=== PATIENT | male | born 1970 | race Caucasian/White ===

== ENCOUNTER → 2017-03-13 | Outpatient (REF) | payer BC, OTHER ==
[~2017-03-13] MED LIST: ASPI325T PO; CARV6.25 PO; LISI5TAB PO; NITR0.4S SL; PRAV20TA2 PO; VICO5TAB PO
== END ==
LOC: M LAB REF 16:27
DX: L97.911 Non-pressure chronic ulcer of unspecified part of right lower leg limited to breakdown of skin (principal)

== ENCOUNTER → 2017-04-01 | Outpatient (REF) | payer OTHER | LOC: M LAB REF 16:13 | PROVIDERS: ATTEND Surgery | DX: I87.311 Chronic venous hypertension (idiopathic) with ulcer of right lower extremity (principal) ==

== ENCOUNTER → 2017-04-02 | Outpatient (CLI) | payer OTHER ==
--- NOTE | 2017-04-02 13:45 | REP ---
Duplex extremity venous ultrasound right lower extremity: DVT and reflux evaluation. History: Venous insufficiency right lower extremity ulcer. 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 Otherwise, the deep veins in the right lower extremity are anechoic and fully compressible on two-dimensional scanning from the groin to the popliteal fossa. Color flow and spectral Doppler interrogation are otherwise unremarkable on the right. There is no other evidence of DVT. Reflux examination. There is extensive reflux seen in the right lower extremity veins in both superficial and deep system. Reflux greater than 0.5 seconds in duration is seen in the common femoral vein. An anterior accessory greater saphenous vein is present without evidence of reflux. The greater saphenous vein shows 3.7 second duration reflux at the saphenofemoral junction where it measures 10.1 mm in AP dimension. The greater saphenous vein at the midthigh measures 7.7 mm in AP dimension and demonstrates 6.9 second duration reflux. The greater saphenous vein at the knee measures 3.4 mm without visible reflux. Reflux is observed greater than 0.5 seconds at the proximal mid and distal segment of the femoral vein and at the popliteal vein on the right. No reflux is observed in the lesser saphenous vein which measured 1.1 mm. There is a large collateral off the mid greater saphenous vein which shows reflux extending down to the knee. There is a instructional media services technician seen off the mid greater saphenous vein with reflux. The greater saphenous vein is felt to be amendable to EVLT. Impression: 1. Study is positive for limited occlusive deep venous thrombosis in one of the duplicated segments of the femoral vein. 2. Multilevel reflux in the deep and superficial system seen as described in detail above. The greater saphenous vein is felt to be amendable to EVLT. Signed by Chris Arias MD 04/02/2017 02:07 P
== END ==
LOC: M RAD 10:51
PROVIDERS: ATTEND Surgery
DX: I87.311 Chronic venous hypertension (idiopathic) with ulcer of right lower extremity (principal); L97.919 Non-pressure chronic ulcer of unspecified part of right lower leg with unspecified severity

== ENCOUNTER → 2017-07-04 | Outpatient (CLI) | payer MEDICAID ==
--- NOTE | 2017-07-04 17:25 | REP ---
Clinical: Trauma. Technique: Frontal view of the chest with multiple views of the right hemithorax. Findings: Frontal view of the chest demonstrates no acute cardiopulmonary process. Multiple views of the right hemithorax demonstrates no obvious acute rib fracture or pathology. Impression: Normal right rib series Signed by Torres Ennis MD 07/04/2017 05:16 P
== END ==
LOC: M LRY 16:53
PROVIDERS: ATTEND Physician Assistant
DX: S29.011A Strain of muscle and tendon of front wall of thorax, initial encounter (principal); X58.XXXA Exposure to other specified factors, initial encounter; Y92.89 Other specified places as the place of occurrence of the external cause; Y93.89 Activity, other specified; Y99.8 Other external cause status

== ENCOUNTER → 2017-10-13 | Outpatient (CLI) | payer OTHER ==
--- NOTE | 2017-10-14 03:58 | REP ---
Clinical: Idiopathic chronic venous hypertension . Technique: Navarrete scale and color Doppler evaluation using linear high frequency transducer including reflux evaluation. Comparison: 04/02/2017. Findings: Ultrasound examination of the left lower extremity deep venous structures from the common femoral vein to the popliteal vein demonstrates a small focus of nonocclusive thrombus in the mid femoral vein which may be chronic. Reflux evaluation demonstrates chronic reflux through the deep system including common femoral vein, superficial femoral vein and popliteal vein. Reflux identified through the proximal greater saphenous vein measuring 9.1 mm maximal diameter with a duration of 2.9 seconds as well as reflux through the mid the greater saphenous vein at the level of the thigh measures 8 mm diameter with a duration of 1.1 seconds. No evidence for reflux through the distal greater saphenous vein, anterior accessory greater saphenous vein, or lesser saphenous vein. Collateral vessels are identified extending from the mid greater saphenous vein towards an area of ulceration along with small perforating vessels from the mid greater saphenous vein extending distally. Impression: 1. Suspect small chronic nonocclusive thrombus in the mid superficial femoral vein similar to prior examination. 2. Continued evidence for reflux through the deep system as well as proximal to mid greater saphenous vein. Signed by Torres Ennis MD 10/14/2017 12:49 A
== END ==
LOC: M RAD 10:23
PROVIDERS: ATTEND Surgery
DX: I87.311 Chronic venous hypertension (idiopathic) with ulcer of right lower extremity (principal)

== ENCOUNTER → 2017-10-15 | Outpatient (REF) ==
--- NOTE | 2017-10-15 18:32 | REP ---
Clinical: Pain and disability. Technique: AP, lateral, coned-down views of the lumbosacral spine. Comparison: 07/27/2009. Findings: Moderate multilevel degenerative changes include endplate sclerosis, disc space narrowing, and mild hypertrophic facet changes. Old compression fracture involving the anterior-superior margin of L3 is identified. Previous mild compression fractures involving L2 and L4 are relatively well-healed and without significant loss of vertebral body height or contour abnormality. Impression: Moderate multilevel degenerative changes. Subtle changes along the anterior superior margin of L3 consistent with old compression fracture. Previous fractures at L2 and L4 appear relatively well-healed and without loss of height or contour abnormality. Signed by Torres Ennis MD 10/15/2017 03:23 P
== END ==
LOC: M SMT 15:33
PROVIDERS: ATTEND Internal Medicine
DX: Z02.71 Encounter for disability determination (principal)

== ENCOUNTER → 2018-04-07 | Outpatient (CLI) | payer OTHER | LOC: M EKG 11:43 | DX: I25.10 Atherosclerotic heart disease of native coronary artery without angina pectoris (principal) | CPT/HCPCS: 93005 ==

== ENCOUNTER 2018-04-10 15:25 | Day surgery (SDC) | payer OTHER ==
[2018-04-10] MEDS: LR 1,000 ML IV ×2 (16:04→19:30)
[2018-04-10] MEDS ORDERED: MIDAZOLAM INJ 2 MG/2 ML VIAL (J2250) As Ordered (17:17)
[2018-04-10] MEDS ORDERED: LIDOCAINE 2% INJ 100 MG/5 ML SDV (FOR ANES.) As Ordered (17:17)
[2018-04-10] MEDS ORDERED: PROPOFOL 500 MG/50 ML VIAL As Ordered (17:17)
[2018-04-10] MEDS ORDERED: fentaNYL 100 MCG/2 ML INJECTION (J3010) As Ordered ×2 (17:18→18:58)
[2018-04-10] MEDS: LIDOCAINE W/EPINEPHRINE 1% 20ML VIAL As Ordered (18:56)
[2018-04-10] MEDS ORDERED: ONDANSETRON 4MG/2ML VIAL (J2405) As Ordered (19:20)
[2018-04-10] MEDS ORDERED: PERCOCET 5MG/325MG TAB As Ordered (19:23)
[2018-04-10] MEDS ORDERED: MORPHINE 10 MG/ML 1ML VIAL (J2270) As Ordered (19:23)
[2018-04-10] MEDS: ONDANSETRON 4MG/2ML VIAL (J2405) IV (19:30)
[2018-04-10] MEDS: PERCOCET 5MG/325MG TAB PO ×2 (19:31→20:00)
[2018-04-10] MEDS: MORPHINE 10 MG/ML 1ML VIAL (J2270) IV ×5 (19:31→20:02)
== END 2018-04-10 20:35 | disposition home or self-care (01) ==
LOC: M SDC 15:25
DX: I83.219 Varicose veins of right lower extremity with both ulcer of unspecified site and inflammation (principal); L97.919 Non-pressure chronic ulcer of unspecified part of right lower leg with unspecified severity; I25.10 Atherosclerotic heart disease of native coronary artery without angina pectoris; I25.2 Old myocardial infarction; Z98.61 Coronary angioplasty status; Z79.82 Long term (current) use of aspirin; Z79.02 Long term (current) use of antithrombotics/antiplatelets
CPT/HCPCS: 36475

== ENCOUNTER → 2018-04-24 | Outpatient (CLI) | payer OTHER | LOC: M RAD 12:16 | DX: I82.811 Embolism and thrombosis of superficial veins of right lower extremity (principal) | CPT/HCPCS: 93971 ==

== ENCOUNTER 2018-09-24 13:59 | Emergency (ER) | payer OTHER ==
[2018-09-24] MEDS: APIXABAN 5 MG TAB (ELIQUIS) PO (16:14)
== END 2018-09-24 16:19 | disposition home or self-care (01) ==
LOC: M ED 13:59
DX: I82.4Z2 Acute embolism and thrombosis of unspecified deep veins of left distal lower extremity (principal); Z79.899 Other long term (current) drug therapy; Z79.82 Long term (current) use of aspirin; F17.210 Nicotine dependence, cigarettes, uncomplicated
CPT/HCPCS: 93970

== ENCOUNTER → 2019-07-12 | Outpatient (REF) | payer MEDICARE, OTHER, SELFPAY ==
[~2019-07-12] MED LIST changes: +ASPI81TA26 PO; +ELIQ5TAB PO; +GABA-845 PO; +HYDR-3715 PO
[2019-07-12 17:25] LABS: HEMATOCRIT 49.7 % (42.0-52.0); HEMOGLOBIN 16.5 g/dl (13.5-17.5); MEAN CORPUSCULAR HEMOGLOBIN 29.4 pg (27.0-33.0); MEAN CORPUSCULAR HGB CONC 33.2 g/dl (32.0-36.5); MEAN CORPUSCULAR VOLUME 88.6 fl (80.0-96.0); PLATELET COUNT, AUTOMATED 257 10^3/uL (150-450); RED BLOOD COUNT 5.61 10^6/uL (4.30-6.10)
[2019-07-12 17:41] LABS: INR 1.09; PROTHROMBIN TIME 13.8 SECONDS (11.8-14.0)
[2019-07-12 17:53] LABS: ALBUMIN 3.7 GM/DL (3.2-5.2); ALT/SGPT 43 U/L (12-78); BILIRUBIN,TOTAL 0.5 MG/DL (0.2-1.0); BLOOD UREA NITROGEN 24 MG/DL (7-18); CALCIUM LEVEL 9.1 MG/DL (8.5-10.1); CARBON DIOXIDE LEVEL 26 MEQ/L (21-32); CHLORIDE LEVEL 108 MEQ/L (98-107); CREATININE FOR GFR 1.09 MG/DL (0.70-1.30); GLOMERULAR FILTRATION RATE > 60.0 (>60); GLUCOSE, FASTING 95 MG/DL (70-100); POTASSIUM SERUM 4.2 MEQ/L (3.5-5.1); SODIUM LEVEL 141 MEQ/L (136-145); TOTAL PROTEIN 6.6 GM/DL (6.4-8.2)
[2019-07-17 00:06] LABS: PROTEIN C ANTIGEN 76 % (60-150); PROTEIN S ANTIGEN FREE 56 % (57-157); PROTEIN S ANTIGEN TOTAL 74 % (60-150)
== END ==
LOC: M SFHCPLAZ 16:40
PROVIDERS: ATTEND Surgery
DX: T14.8XXA Other injury of unspecified body region, initial encounter (principal); Y92.89 Other specified places as the place of occurrence of the external cause

== ENCOUNTER → 2019-07-27 | Outpatient (REF) | payer MEDICARE ==
[~2019-07-27] MED LIST changes: +IBUP80TA PO
[2019-07-27 20:40] LABS: BASO # 0.1 10^3/uL (0.0-0.2); EOS # 0.5 10^3/uL (0.0-0.5); HEMATOCRIT 48.5 % (42.0-52.0); HEMOGLOBIN 16.3 g/dl (13.5-17.5); LYMPH # 1.1 10^3/uL (1.5-5.0); LYMPH % 21.1 % (24.0-44.0); MEAN CORPUSCULAR HEMOGLOBIN 29.4 pg (27.0-33.0); MEAN CORPUSCULAR HGB CONC 33.6 g/dl (32.0-36.5); MEAN CORPUSCULAR VOLUME 87.5 fl (80.0-96.0); MONO # 0.6 10^3/uL (0.0-0.8); MONO % 11.2 % (0.0-5.0); NEUTROPHILS # 2.9 10^3/uL (1.5-8.5); NEUTROPHILS % 57.3 % (36.0-66.0); PLATELET COUNT, AUTOMATED 236 10^3/uL (150-450); RED BLOOD COUNT 5.54 10^6/uL (4.30-6.10)
[2019-07-27 20:52] LABS: INR 1.09; PROTHROMBIN TIME 13.8 SECONDS (11.8-14.0)
[2019-07-27 20:53] LABS: ALBUMIN 3.5 GM/DL (3.2-5.2); ALT/SGPT 32 U/L (12-78); AMPHETAMINES URINE REFLEX NEGATIVE (NEGATIVE); BARBITURATES URINE REFLEX NEGATIVE (NEGATIVE); BENZODIAZEPINES URINE REFLEX NEGATIVE (NEGATIVE); BILIRUBIN,TOTAL 0.3 MG/DL (0.2-1.0); BLOOD UREA NITROGEN 18 MG/DL (7-18); CALCIUM LEVEL 9.1 MG/DL (8.5-10.1); CANNABINOIDS URINE REFLEX NEGATIVE (NEGATIVE); CARBON DIOXIDE LEVEL 28 MEQ/L (21-32); CHLORIDE LEVEL 108 MEQ/L (98-107); CHOLESTEROL LEVEL 220 MG/DL (<200); CHOLESTEROL RISK RATIO 5.945 (<5); COCAINE METABOLITE URINE REFLE NEGATIVE (NEGATIVE); CREATININE FOR GFR 0.95 MG/DL (0.70-1.30); GLOMERULAR FILTRATION RATE > 60.0 (>60); GLUCOSE, FASTING 110 MG/DL (70-100); HDL CHOLESTEROL 37 MG/DL (>40); LDL CHOLESTEROL 132 MG/DL (<100); METHADONE URINE REFLEX NEGATIVE (NEGATIVE); NON-HDL-C 183 MG/DL; OPIATES URINE REFLEX NEGATIVE (NEGATIVE); PHENCYCLIDINE URINE REFLEX NEGATIVE (NEGATIVE); POTASSIUM SERUM 4.6 MEQ/L (3.5-5.1); SODIUM LEVEL 142 MEQ/L (136-145); TOTAL PROTEIN 7.5 GM/DL (6.4-8.2); TRIGLYCERIDES LEVEL 256 MG/DL (<150)
[2019-07-27 20:58] LABS: HEMOGLOBIN A1c 5.6 %
== END ==
LOC: M SFHCLERA 15:05
PROVIDERS: ATTEND Family Medicine
DX: F11.90 Opioid use, unspecified, uncomplicated (principal); E66.09 Other obesity due to excess calories; I82.412 Acute embolism and thrombosis of left femoral vein; Z79.01 Long term (current) use of anticoagulants
CPT/HCPCS: 80053; 80061; 80307; 83036; 84443; 85025; 85610; G0463

== ENCOUNTER 2019-09-24 14:22 | Emergency (ER) | payer MEDICARE ==
[~2019-09-24] VITALS: Ht 177.8 cm; Wt 122.0 kg
[~2019-09-24 14:22] MED LIST changes: -IBUP80TA PO
[2019-09-24] MEDS ORDERED: NS 1,000 ML IV ONE (15:15)
[2019-09-24] MEDS ORDERED: MORPHINE 4 MG/ML 1ML VIAL/SYRINGE (J2270) IV ONE (15:15)
[2019-09-24 16:03] LABS: BASO # 0.1 10^3/uL (0.0-0.2); EOS # 0.3 10^3/uL (0.0-0.5); HEMATOCRIT 49.3 % (42.0-52.0); HEMOGLOBIN 15.9 g/dl (13.5-17.5); LYMPH # 1.1 10^3/uL (1.5-5.0); LYMPH % 17.6 % (24.0-44.0); MEAN CORPUSCULAR HEMOGLOBIN 27.8 pg (27.0-33.0); MEAN CORPUSCULAR HGB CONC 32.3 g/dl (32.0-36.5); MEAN CORPUSCULAR VOLUME 86.3 fl (80.0-96.0); MONO # 0.7 10^3/uL (0.0-0.8); MONO % 11.5 % (0.0-5.0); NEUTROPHILS % 64.4 % (36.0-66.0); PLATELET COUNT, AUTOMATED 270 10^3/uL (150-450); RED BLOOD COUNT 5.71 10^6/uL (4.30-6.10); WHITE BLOOD COUNT 6.2 10^3/uL (4.0-10.0)
[2019-09-24 16:15] LABS: INR 1.15; PROTHROMBIN TIME 14.4 SECONDS (11.8-14.0)
[2019-09-24 16:16] LABS: PARTIAL THROMBOPLASTIN TIME 27.2 SECONDS (25.0-38.4)
[2019-09-24 16:20] LABS: ALBUMIN 3.7 GM/DL (3.2-5.2); ALT/SGPT 44 U/L (12-78); BILIRUBIN,DIRECT < 0.1 MG/DL (0.0-0.2); BILIRUBIN,TOTAL 0.4 MG/DL (0.2-1.0); C REACTIVE PROTEIN QUANTITATIV < 0.30 MG/DL (0.00-0.30); TOTAL PROTEIN 7.4 GM/DL (6.4-8.2)
[2019-09-24 16:22] LABS: ERYTHROCYTE SEDIMENTATION RATE 5 mm/hr (0-15)
--- NOTE | 2019-09-24 16:31 | REP ---
Clinical: Increasing pain. Comparison: 09/24/2018 at 02:53 p.m. . Technique: Navarrete scale and color Doppler evaluation using linear high frequency transducer. Findings: Ultrasound examination of the left lower extremity demonstrates chronic nonocclusive thrombus from the common femoral vein to the popliteal vein. Impression: Chronic nonocclusive thrombus. Electronically Signed by Torres Ennis MD 09/24/2019 04:22 P
[2019-09-24] MEDS ORDERED: IBUP80TA PO (16:47)
[2019-09-24 17:09] VITALS: BP 145/77
== END 2019-09-24 17:12 | disposition home or self-care (01) ==
LOC: M ED 14:22
DX: L97.229 Non-pressure chronic ulcer of left calf with unspecified severity (principal); I82.401 Acute embolism and thrombosis of unspecified deep veins of right lower extremity; I21.9 Acute myocardial infarction, unspecified; F17.210 Nicotine dependence, cigarettes, uncomplicated; Z79.01 Long term (current) use of anticoagulants
CPT/HCPCS: 36415; 80047; 80076; 81001; 83605; 85025; 85610; 85652; 85730; 86140; 87040; 93971; 96374; 99284; J2270

== ENCOUNTER → 2019-11-19 | Outpatient (CLI) | payer MEDICARE ==
[~2019-11-19] MED LIST changes: +IBUP80TA PO
--- NOTE | 2019-11-19 20:35 | REP ---
LEFT LOWER EXTREMITY ARTERIAL DOPPLER ULTRASOUND: 11/19/2019. Clinical history: Chronic ulceration left lower extremity fat layer explosive exposed, non pressure ulcer. Findings: Standard duplex Doppler interrogation techniques for lower extremity arterial Doppler were utilized. The left HEIDI: Brachial : 150 Dorsalis pedis: 174 MAINTENANCE REPAIRER: 150 The left HEIDI: 1.09. Left lower extremity: Peak systolic velocity: Phasicity. NITRILES LAB TECHNICIAN: 159.2 cm/S triphasic Profunda: 72.9 cm/S triphasic SFA proximal: 127.3 cm/S triphasic SFA mid: 117.8 cm/S triphasic SFA distal: 77.1 cm/S triphasic Pop: 78.4 cm/S triphasic KARAN prox: 109 cm/S triphasic Tibioperoneal trunk: 56.9 cm/S triphasic MAINTENANCE REPAIRER proximal: 83.1 cm/S triphasic MAINTENANCE REPAIRER distal: 105 cm/S monophasic KARAN distal: 77 cm/S monophasic There are scattered mild plaques seen throughout the left lower extremity. Monophasic waveforms are only seen at the left ankle, but no specific stenosis. It may be that the distal MAINTENANCE REPAIRER and MAINTENANCE REPAIRER are monophasic with hyperemia from the nonhealing wounds waveform show high diastolic flow throughout. As an incidental finding. There is a nonocclusive clot in the left common femoral vein through the tibioperoneal trunk. The patient is on anticoagulation and has history of chronic DVT. Electronically Signed by Tyrone Lora MD 11/19/2019 08:26 P
== END ==
LOC: M RAD 16:55
PROVIDERS: ATTEND Physician Assistant
DX: I87.312 Chronic venous hypertension (idiopathic) with ulcer of left lower extremity (principal); L97.822 Non-pressure chronic ulcer of other part of left lower leg with fat layer exposed; I82.522 Chronic embolism and thrombosis of left iliac vein

== ENCOUNTER → 2019-12-07 | Outpatient (POV) | payer MEDICARE ==
[~2019-12-07] VITALS: Ht 177.8 cm; Wt 118.2 kg
[2019-12-07 14:20] VITALS: BP 140/83
--- NOTE | 2019-12-09 13:28 | IRCOV ---
[facility] IR Consult Office Visit IR Consult Office Visit DATE: Dec 07, 2019 REASON FOR CONSULTATION/CHIEF COMPLAINT: Nonhealing left lower extremity wounds. HISTORY OF PRESENT ILLNESS: 49-year-old male with prior history of right lower extremity varicose veins and ulcers which were treated with vein ablation 2 years ago and symptoms resolved. Now he presents with superficial, non healing, left lower extremity ulcers. Ulcers are shallow and located on the outside of the ankle and the medial calf. These have been present for several months. Prior history of right leg DVT years ago and left leg DVT diagnosed 1 year ago. He is on Eliquis. No IVC filter in place. Follow-up ultrasound of his left lower extremity have demonstrated incomplete resolution of left lower extremity deep vein thrombosis. He complains of left leg swelling and pain. No intermittent claudication. No rest pain. No prior to amputations, gangrene or cold foot. No chest pain, shortness of breath, orthopnea or paroxysmal nocturnal dyspnea. ALLERGIES: Please see below. HOME MEDICATIONS: Please see below. PAST MEDICAL HISTORY: [place] 2010 DVT 2 Right lower extremity venous ablation 2017 PAST SURGICAL HISTORY: Heart catheterization 2012 FAMILY HISTORY: Noncontributory. SOCIAL HISTORY: Quit smoking 3 weeks ago. Feels symptoms are improved since then. No alcohol or drugs. REVIEW OF SYSTEMS: Otherwise negative PHYSICAL EXAMINATION: VITAL SIGNS: Please see below. GENERAL APPEARANCE: Appears well. Comfortable at rest. HEENT: No scleral icterus. RESPIRATORY: Normal breathing at rest. CARDIOVASCULAR: Normal rate. ABDOMEN: Soft nontender. EXTREMITIES: Right lower extremity: Normal color. Warm to touch. Femoral pulse 2+ popliteal pulse 2+ DP/PT 2+ patchy sensory loss from ankle to mid calf; medial aspect. Motor 5 out of 5 Left lower extremity; spider veins. Ulcer medial calf and lateral ankle. Warm. Femoral pulse 2+ popliteal 2+ DP/PT 2+ motor 5 out of 5 sensation intact. NEUROLOGICAL: Alert and oriented. PSYCHIATRIC: Appropriate to circumstance. LABORATORY DATA: 09/24/2019 hemoglobin 15.9 hematocrit 49.3 WBC 6.2 platelets 270 sodium 142 potassium 4.6 BUN 18 creatinine 0.95 LDL 132 INR 1.15 Imaging: I personally reviewed the arterial ultrasound of the left lower extremity from October 2019. Predominantly triphasic waveforms in common femoral artery, superficial femoral artery and below-knee runoff. Scattered foci of monophasic waveform in the distal CHILD CARE but majority of AT and PT demonstrated triphasic flow. I personally reviewed the ultrasound left lower extremity of the veins from August 2019 and compared it to August 2018. There is persistent thrombus in the majority of the femoral vein and popliteal vein. The common femoral vein now appears compressible. ASSESSMENT/PLAN: 49-year-old male with venous stasis ulcers in the left lower extremity and chronic venous hypertension with incomplete resolution of left lower extremities deep vein thrombosis. Given patient's symptoms and signs, I wonder about the central drainage of the venous structures of the left lower extremity. I think a venogram to look for chronic total occlusion and attempt at recanalization may benefit the patient. Given his physical exam, present pulses on exam and review of ultrasound images, I'll hold off on angiogram at this time. We have scheduled the patient for venography and intervention if appropriate. I spent 30 minutes in consultation with the patient. Thank you for this referral. CC Jazmine Bingham Allergies Coded Allergies: No Known Drug Allergies (Verified Allergy, Unknown, 09/24/19) Home Medications Scheduled Apixaban (Eliquis), 5 MG PO BID, (Reported) Apixaban (Eliquis), 5 MG PO ASDIRECTED Scheduled PRN Ibuprofen (Ibuprofen), 800 MG PO Q6H PRN for PAIN VS, I&O, 24H, Fishbone Vital Signs/I&O Vital Signs Date Time Temp Pulse Resp B/P (MAP) Pulse Ox O2 Delivery O2 Flow Rate FiO2 12/07/19 14:20 97.2 101 18 140/83 (102) 95 Room Air ARNALDO RESENDIZ MD Dec 09, 2019 13:28
== END ==
LOC: M IRPOV 14:16
PROVIDERS: ATTEND Radiology Diagnostic Radiology
DX: I87.312 Chronic venous hypertension (idiopathic) with ulcer of left lower extremity (principal); L97.929 Non-pressure chronic ulcer of unspecified part of left lower leg with unspecified severity

== ENCOUNTER → 2019-12-24 | Outpatient (CLI) | payer MEDICARE, OTHER ==
[~2019-12-24] MED LIST changes: +ATOR1TAB19 PO; +ISOVUE-300 61% 50ML VIAL As Ordered ONE; +LIDOCAINE 1% MDV 20ML VIAL As Ordered ONE; +MIDAZOLAM INJ 2MG/2ML VIAL (J2250 PER 1MG) As Ordered ONE; +ONDANSETRON 4MG/2ML VIAL As Ordered ONE; +diphenhydrAMINE 50MG/ML VIAL (J1200) As Ordered ONE; +fentaNYL 100 MCG/2 ML INJECTION (J3010) As Ordered ONE
--- NOTE | 2019-12-24 07:34 | IRHP ---
[facility] IR Pre-Procedure H & P General Date of Service: Dec 24, 2019 Procedure: Same Day Surgery Interval History and Physical I have seen the patient and reviewed last H & P performed within 30 days. There is no significant interval change. History of Present Illness Chief Complaint The patient is a 49-year-old male admitted with a reason for visit of Chronic Venous Occlusion. PRE-PROCEDURE DIAGNOSIS: chronic venous occlusion HEART: normal rate. LUNGS: normal breathing at rest. ASA Classification ASA Classification: III-Severe systemic dis. Mallampati Score: II NPO: Yes Problems with prior sedation: No Obstructive Sleep Apnea: No Plan moderate sedation Allergies Coded Allergies: No Known Drug Allergies (Verified Allergy, Unknown, 09/24/19) Home Medications Scheduled Apixaban (Eliquis), 5 MG PO BID, (Reported) Apixaban (Eliquis), 5 MG PO ASDIRECTED Aspirin (Aspirin EC), 81 MG PO DAILY, (Reported) Atorvastatin Calcium (Atorvastatin Calcium), 10 MG PO DAILY, (Reported) Scheduled PRN Ibuprofen (Ibuprofen), 800 MG PO Q6H PRN for PAIN VS, I&O, 24H, Fishbone Vital Signs/I&O Vital Signs Date Time Temp Pulse Resp B/P (MAP) Pulse Ox O2 Delivery O2 Flow Rate FiO2 12/24/19 07:05 97.4 78 16 96 Room Air Laboratory Data 24H LABS Laboratory Tests 2 12/24/19 07:15: CBC/BMP ARNALDO RESENDZI MD Dec 24, 2019 07:34
[2019-12-24 07:37] LABS: HEMATOCRIT 49.1 % (42.0-52.0); MEAN CORPUSCULAR HEMOGLOBIN 28.3 pg (27.0-33.0); MEAN CORPUSCULAR HGB CONC 32.6 g/dl (32.0-36.5); MEAN CORPUSCULAR VOLUME 86.7 fl (80.0-96.0); PLATELET COUNT, AUTOMATED 230 10^3/uL (150-450); RED BLOOD COUNT 5.66 10^6/uL (4.30-6.10); WHITE BLOOD COUNT 5.2 10^3/uL (4.0-10.0)
[2019-12-24 07:49] LABS: INR 1.04; PROTHROMBIN TIME 13.3 SECONDS (11.8-14.0)
[2019-12-24 07:54] LABS: BLOOD UREA NITROGEN 16 MG/DL (7-18); CALCIUM LEVEL 8.5 MG/DL (8.5-10.1); CARBON DIOXIDE LEVEL 25 MEQ/L (21-32); CHLORIDE LEVEL 112 MEQ/L (98-107); CREATININE FOR GFR 0.88 MG/DL (0.70-1.30); GLOMERULAR FILTRATION RATE > 60.0 (>60); GLUCOSE, FASTING 112 MG/DL (70-100); POTASSIUM SERUM 4.6 MEQ/L (3.5-5.1); SODIUM LEVEL 141 MEQ/L (136-145)
--- NOTE | 2019-12-24 08:49 | POST-OPPD ---
Postoperative Procedure Note Date Of Procedure: Dec 24, 2019 Time Of Procedure: 08:47 PREOPERATIVE DIAGNOSIS: left LE venous HTN, dvts POSTOPERATIVE DIAGNOSIS: same FINDINGS: normal left common iliac vein. no central venous occlusion. no may thurner PROCEDURE: venogram SURGEON: dariana ANESTHESIA: mod sed ESTIMATED BLOOD LOSS: < 5 ml COMPLICATIONS: none POSTOPERATIVE CONDITION: stable ARNALDO RESENDIZ MD Dec 24, 2019 08:49
[2019-12-24 10:22] VITALS: BP 158/102
--- NOTE | 2019-12-24 13:18 | REP ---
IR Left iliac venography. IR moderate sedation. IR ultrasound guided right internal jugular vein access. Clinical information: Multiple left lower extremity DVTs. Chronic left lower extremity venous hypertension. Physician: Dr. Boswell. Procedure: The patient was advised of the benefits, risks and alternatives of the procedure and informed consent was obtained. The time-out was performed with verification of the patient's name MRN, site of procedure and type of procedure to be performed. The patient was positioned in the supine position on the angiographic table. The site was prepped and draped in the usual sterile fashion. Moderate sedation was performed by the physician including the presence of an independent trained observer who assisted in monitoring the patient's level of consciousness and physiologic status. Following the administration of fentanyl and Versed, the physician spent 45 minutes of continuous face to face time with the patient. A fresh work inspector radiograph reveals no gross abnormality. Ultrasound of the right neck demonstrates patent and compressible right internal jugular vein. A micropuncture needle was used under ultrasound guidance to access the right internal jugular vein. An 018 wire was advanced into the inferior vena cava and the micropuncture needle was exchanged for a micro sheath. An Amplatz wire was advanced into the inferior vena cava the micro sheath was exchanged for a 6-Azeri vascular sheath. An MPB catheter in conjunction with a Glidewire was used under fluoroscopy guidance to catheterize the left common iliac vein. This catheter and wire were then used to selectively catheterize the left external iliac vein and left common femoral vein. A venogram was then performed which demonstrates good flow from the common femoral vein back through the external iliac and common iliac vein. No filling of cross pelvic collaterals. No left iliac vein occlusion or stenosis. The catheter, wire and sheath were removed, pressure held and hemostasis achieved. A sterile dressing was applied to the site. The patient tolerated the procedure well and was returned to PRU in stable condition. EBL: Less than 5 ml. Complications: None. Impression: 1. Left iliac venogram demonstrates no iliac vein occlusion. No May-Thurner syndrome. Left lower extremity venous hypertension secondary to multiple prior DVTs. 2. No iliac vein stenting indicated. Thank you this referral. Electronically Signed by Jackie Boswell MD 12/24/2019 01:16 P
== END ==
LOC: M IRPRO 06:47
PROVIDERS: ATTEND Radiology Diagnostic Radiology
DX: I87.302 Chronic venous hypertension (idiopathic) without complications of left lower extremity (principal); Z86.718 Personal history of other venous thrombosis and embolism
CPT/HCPCS: 36010; 75820; 80048; 85027; 85610; 99152; 99153; C1769; C1887; C1894; J1200; J1644; J2250; J2405; J3010; Q9967

== ENCOUNTER 2021-12-30 04:33 | Emergency (ER) | payer MEDICARE, OTHER ==
[~2021-12-30] VITALS: Ht 177.8 cm; Wt 109.1 kg
[~2021-12-30 04:33] MED LIST changes: +GABA-283 PO; -GABA-845 PO; -ISOVUE-300 61% 50ML VIAL As Ordered ONE; -LIDOCAINE 1% MDV 20ML VIAL As Ordered ONE; -MIDAZOLAM INJ 2MG/2ML VIAL (J2250 PER 1MG) As Ordered ONE; -ONDANSETRON 4MG/2ML VIAL As Ordered ONE; -diphenhydrAMINE 50MG/ML VIAL (J1200) As Ordered ONE; -fentaNYL 100 MCG/2 ML INJECTION (J3010) As Ordered ONE
[2021-12-30] MEDS ORDERED: ISOVUE-370 76% 100ML VIAL As Ordered ONE (05:26)
[2021-12-30 05:27] LABS: BASO # 0.1 10^3/uL (0.0-0.2); BASO % 0.8 % (0.0-1.0); EOS # 0.2 10^3/uL (0.0-0.5); EOS % 3.5 % (0.0-3.0); HEMATOCRIT 40.6 % (42.0-52.0); HEMOGLOBIN 12.9 g/dl (13.5-17.5); LYMPH # 1.3 10^3/uL (1.5-5.0); LYMPH % 20.3 % (24.0-44.0); MEAN CORPUSCULAR HEMOGLOBIN 28.5 pg (27.0-33.0); MEAN CORPUSCULAR HGB CONC 31.8 g/dl (32.0-36.5); MEAN CORPUSCULAR VOLUME 89.6 fl (80.0-96.0); MONO # 0.7 10^3/uL (0.0-0.8); MONO % 11.1 % (2.0-8.0); PLATELET COUNT, AUTOMATED 233 10^3/uL (150-450); RED BLOOD COUNT 4.53 10^6/uL (4.30-6.10); WHITE BLOOD COUNT 6.3 10^3/uL (4.0-10.0)
[2021-12-30 05:39] LABS: INR 1.23; PROTHROMBIN TIME 15.9 SECONDS (12.7-14.5)
[2021-12-30] MEDS ORDERED: HEPARIN SOD (PORCINE) 5000UNITS/ML 1ML VIAL/SYRINGE IV ONE (06:40)
[2021-12-30] MEDS ORDERED: HEPARIN DRIP 25,000 UNITS in IV 1 EA IV SCH (06:40)
[2021-12-30] MEDS ORDERED: HEPARIN SOD (PORCINE) 5000UNITS/ML 1ML VIAL/SYRINGE IV PRN (06:40)
[2021-12-30 07:23] LABS: RSV AMPLIFICATION NEGATIVE (NEGATIVE)
[2021-12-30 08:20] VITALS: BP 135/96
== END 2021-12-30 08:25 | disposition short-term general hospital (02) ==
LOC: M ED 04:33
DX: I74.2 Embolism and thrombosis of arteries of the upper extremities (principal); I99.8 Other disorder of circulatory system; I25.2 Old myocardial infarction; R94.31 Abnormal electrocardiogram [ECG] [EKG]; I48.91 Unspecified atrial fibrillation; I10 Essential (primary) hypertension; E78.5 Hyperlipidemia, unspecified; F17.200 Nicotine dependence, unspecified, uncomplicated; Z79.82 Long term (current) use of aspirin; Z79.899 Other long term (current) drug therapy; Z86.718 Personal history of other venous thrombosis and embolism; Z83.2 Family history of diseases of the blood and blood-forming organs and certain disorders involving the immune mechanism; Z98.890 Other specified postprocedural states
CPT/HCPCS: 73206; 80047; 83605; 85025; 85610; 85730; 87631; 93005; 93931; 96360; 99284; J1644; Q9967

== ENCOUNTER 2024-01-01 17:35 | Emergency (ER) | payer OTHER ==
[~2024-01-01] VITALS: Ht 177.8 cm; Wt 142.1 kg
[~2024-01-01 17:35] MED LIST changes: -GABA-283 PO; +GABA-284 PO
[2024-01-01] MEDS ORDERED: ASPI-255 PO (17:47)
[2024-01-01 18:51] LABS: BASO % 0.6 % (0.0-1.0); EOS # 0.3 10^3/uL (0.0-0.5); EOS % 4.7 % (0.0-3.0); HEMATOCRIT 46.8 % (42.0-52.0); HEMOGLOBIN 14.8 g/dl (13.5-17.5); LYMPH # 1.1 10^3/uL (1.5-5.0); LYMPH % 20.1 % (24.0-44.0); MEAN CORPUSCULAR HEMOGLOBIN 28.8 pg (27.0-33.0); MEAN CORPUSCULAR HGB CONC 31.6 g/dl (32.0-36.5); MEAN CORPUSCULAR VOLUME 91.1 fl (80.0-96.0); MONO # 0.7 10^3/uL (0.0-0.8); MONO % 12.7 % (2.0-8.0); NEUTROPHILS # 3.3 10^3/uL (1.5-8.5); NEUTROPHILS % 61.5 % (36.0-66.0); PLATELET COUNT, AUTOMATED 221 10^3/uL (150-450); RED BLOOD COUNT 5.14 10^6/uL (4.30-6.10); WHITE BLOOD COUNT 5.4 10^3/uL (4.0-10.0)
[2024-01-01 19:03] LABS: INR 1.17; PARTIAL THROMBOPLASTIN TIME 25.9 SECONDS (24.8-34.2); PROTHROMBIN TIME 14.6 SECONDS (12.5-14.5)
[2024-01-01 19:17] LABS: ALBUMIN 3.5 G/DL (3.2-5.2); ALKALINE PHOSPHATASE 134 U/L (46-116); ALT/SGPT 42 U/L (7.0-40); AST/SGOT 42 U/L (<34); BILIRUBIN,DIRECT 0.3 MG/DL (<0.4); BILIRUBIN,TOTAL 1.1 MG/DL (0.3-1.2); BLOOD UREA NITROGEN 33 MG/DL (9-23); CALCIUM LEVEL 8.5 MG/DL (8.5-10.1); CARBON DIOXIDE LEVEL 25 MMOL/L (20-31); CHLORIDE LEVEL 107 MMOL/L (98-107); CK-MB VALUE MASS 10.5 NG/ML (<3.6); CREATININE FOR GFR 0.97 MG/DL (0.70-1.30); GLOMERULAR FILTRATION RATE > 60.0 (>56); GLUCOSE, FASTING 160 MG/DL (60-100); POTASSIUM SERUM 4.9 MMOL/L (3.5-5.1); SODIUM LEVEL 136 MMOL/L (136-145)
[2024-01-01 19:18] LABS: FREE T4 1.04 NG/DL (0.89-1.76)
[2024-01-01 19:19] LABS: THYROID STIMULATING HORMONE 2.317 uIU/ML (0.55-4.78)
[2024-01-01 19:21] LABS: CPK CREATINE PHOSPHOKINASE 473 U/L (46-171); MB/CK RELATIVE INDEX 2.21 (< OR =4)
[2024-01-01] MEDS ORDERED: ISOVUE-370 76% 100ML VIAL As Ordered ONE (20:29)
[2024-01-01] MEDS: FUROSEMIDE 100MG/10ML VIAL IV ONE (21:20)
[2024-01-01] MEDS: METOPROLOL 5 MG/5 ML VIAL IV SCH (21:24)
[2024-01-01] MEDS: METOPROLOL TART 25 MG TABLET PO ONE (21:25)
[2024-01-01 22:00] LABS: CK-MB VALUE MASS 9.3 NG/ML (<3.6); MB/CK RELATIVE INDEX 2.01 (< OR =4)
[2024-01-01 22:12] VITALS: BP 117/53
[2024-01-01] MEDS ORDERED: LASI40TA9 PO (22:47)
[2024-01-01] MEDS ORDERED: ELIQ5TAB PO (22:47)
[2024-01-01] MEDS ORDERED: ATOR80TA59 PO (22:47)
[2024-01-01] MEDS ORDERED: TOPR25TA PO (22:47)
[2024-01-01 22:59] VITALS: BP 102/64; TEMP 97.8; O2SAT 93
[2024-01-01] MEDS: APIXABAN 5 MG TAB (ELIQUIS) PO ONE (23:00)
== END 2024-01-01 23:30 | disposition home or self-care (01) ==
LOC: M ED 17:35
DX: I48.91 Unspecified atrial fibrillation (principal); I50.20 Unspecified systolic (congestive) heart failure; Z86.718 Personal history of other venous thrombosis and embolism; R73.01 Impaired fasting glucose; I73.9 Peripheral vascular disease, unspecified; R79.9 Abnormal finding of blood chemistry, unspecified; F17.200 Nicotine dependence, unspecified, uncomplicated; Z95.5 Presence of coronary angioplasty implant and graft; Z79.82 Long term (current) use of aspirin
CPT/HCPCS: 71046; 71275; 80048; 80076; 82550; 82553; 83880; 84439; 84443; 84484; 85025; 85610; 85730; 93005; 93041; 93971; 94760; 96365; 96375; 99285; J1940; Q9967

== ENCOUNTER → 2024-01-15 | Outpatient (REF) | payer OTHER ==
[~2024-01-15] MED LIST changes: +ASPI-255 PO; +ATOR80TA59 PO; +LASI40TA9 PO; +TOPR25TA PO
[2024-01-15 14:17] LABS: BASO # 0.1 10^3/uL (0.0-0.2); BASO % 0.7 % (0.0-1.0); EOS # 0.3 10^3/uL (0.0-0.5); EOS % 3.5 % (0.0-3.0); HEMATOCRIT 49.6 % (42.0-52.0); HEMOGLOBIN 15.6 g/dl (13.5-17.5); LYMPH # 1.1 10^3/uL (1.5-5.0); LYMPH % 12.3 % (24.0-44.0); MEAN CORPUSCULAR HGB CONC 31.5 g/dl (32.0-36.5); MEAN CORPUSCULAR VOLUME 92.2 fl (80.0-96.0); MONO # 1.4 10^3/uL (0.0-0.8); MONO % 15.7 % (2.0-8.0); NEUTROPHILS # 5.8 10^3/uL (1.5-8.5); NEUTROPHILS % 67.5 % (36.0-66.0); PLATELET COUNT, AUTOMATED 258 10^3/uL (150-450); RED BLOOD COUNT 5.38 10^6/uL (4.30-6.10); WHITE BLOOD COUNT 8.6 10^3/uL (4.0-10.0)
[2024-01-15 14:25] LABS: HEMOGLOBIN A1c 6.3 % (4.0-6.0)
[2024-01-15 14:51] LABS: THYROID STIMULATING HORMONE 4.016 uIU/ML (0.55-4.78); TOTAL 25(OH) VITAMIN D 21.3 NG/ML (20.0-100.0)
[2024-01-15 14:52] LABS: ALBUMIN 3.7 G/DL (3.2-5.2); ALKALINE PHOSPHATASE 111 U/L (46-116); ALT/SGPT 45 U/L (7.0-40); AST/SGOT 31 U/L (<34); BILIRUBIN,TOTAL 0.9 MG/DL (0.3-1.2); BLOOD UREA NITROGEN 26 MG/DL (9-23); CALCIUM LEVEL 9.7 MG/DL (8.5-10.1); CARBON DIOXIDE LEVEL 22 MMOL/L (20-31); CHLORIDE LEVEL 110 MMOL/L (98-107); CHOLESTEROL LEVEL 126 MG/DL (<200); CHOLESTEROL RISK RATIO 4.79 (<5); CREATININE FOR GFR 1.04 MG/DL (0.70-1.30); GLOMERULAR FILTRATION RATE > 60.0 (>56); GLUCOSE, FASTING 120 MG/DL (60-100); HDL CHOLESTEROL 26.3 MG/DL (>40); LDL CHOLESTEROL 62.7 MG/DL (<100); NON-HDL-C 99.7 MG/DL; POTASSIUM SERUM 5.4 MMOL/L (3.5-5.1); SODIUM LEVEL 139 MMOL/L (136-145); TOTAL PROTEIN 7.2 G/DL (5.7-8.2); TRIGLYCERIDES LEVEL 185 MG/DL (<150)
[2024-01-15 15:16] LABS: HIV 1&2 SCREEN NEGATIVE (NEGATIVE)
[2024-01-15 15:24] LABS: HEPATITIS C VIRUS ABY INDEX 0.02 INDEX (<0.8)
== END ==
LOC: M LAB REF 12:54
PROVIDERS: ATTEND Physician Assistant
DX: Z11.9 Encounter for screening for infectious and parasitic diseases, unspecified (principal); E66.9 Obesity, unspecified; R53.83 Other fatigue; E55.9 Vitamin D deficiency, unspecified; I50.9 Heart failure, unspecified

== ENCOUNTER 2024-01-22 15:37 | Emergency (ER) | payer OTHER ==
[~2024-01-22] VITALS: Ht 177.8 cm; Wt 138.2 kg
[2024-01-22 17:05] LABS: HEMATOCRIT 49.3 % (42.0-52.0); HEMOGLOBIN 15.8 g/dl (13.5-17.5); MEAN CORPUSCULAR VOLUME 90.5 fl (80.0-96.0); PLATELET COUNT, AUTOMATED 269 10^3/uL (150-450); RED BLOOD COUNT 5.45 10^6/uL (4.30-6.10)
[2024-01-22 17:37] LABS: BLOOD UREA NITROGEN 27 MG/DL (9-23); CALCIUM LEVEL 9.4 MG/DL (8.5-10.1); CARBON DIOXIDE LEVEL 23 MMOL/L (20-31); CHLORIDE LEVEL 108 MMOL/L (98-107); CREATININE FOR GFR 0.95 MG/DL (0.70-1.30); GLOMERULAR FILTRATION RATE > 60.0 (>56); GLUCOSE, FASTING 130 MG/DL (60-100); SODIUM LEVEL 140 MMOL/L (136-145)
[2024-01-22] MEDS ORDERED: ATOR80TA59 PO (18:07)
[2024-01-22] MEDS ORDERED: BISO5TAB14 (18:07)
[2024-01-22] MEDS ORDERED: ENTR1TAB PO (18:09)
[2024-01-22] MEDS ORDERED: ALDA25TA2 PO (18:10)
[2024-01-22 18:48] VITALS: BP 125/50; TEMP 98.6; O2SAT 92
== END 2024-01-22 18:51 | disposition home or self-care (01) ==
LOC: M ED 15:37 → EDBD 15:37 → M ED 18:51
DX: I50.32 Chronic diastolic (congestive) heart failure (principal); I48.20 Chronic atrial fibrillation, unspecified; Z86.79 Personal history of other diseases of the circulatory system; Z91.199 Patient's noncompliance with other medical treatment and regimen due to unspecified reason; I45.81 Long QT syndrome; I25.2 Old myocardial infarction; I10 Essential (primary) hypertension; F17.200 Nicotine dependence, unspecified, uncomplicated; F10.10 Alcohol abuse, uncomplicated; Z86.718 Personal history of other venous thrombosis and embolism; Z79.01 Long term (current) use of anticoagulants; Z79.82 Long term (current) use of aspirin; Z79.02 Long term (current) use of antithrombotics/antiplatelets; Z79.899 Other long term (current) drug therapy

== ENCOUNTER → 2024-02-12 | Outpatient (REF) | payer OTHER ==
[~2024-02-12] MED LIST changes: +ALDA25TA2 PO; +BISO5TAB14; +ENTR1TAB PO
[2024-02-12 13:04] LABS: CREATININE, URINE 17.1 MG/DL; MAU/CREAT RATIO 17.5 MCG/MG (0.0-30.0)
[2024-02-12 13:29] LABS: HEMOGLOBIN A1c 6.5 % (4.0-6.0)
[2024-02-12 13:42] LABS: ALBUMIN 3.7 G/DL (3.2-5.2); ALKALINE PHOSPHATASE 140 U/L (46-116); ALT/SGPT 38 U/L (7.0-40); AST/SGOT 31 U/L (<34); BILIRUBIN,TOTAL 0.7 MG/DL (0.3-1.2); BLOOD UREA NITROGEN 25 MG/DL (9-23); CALCIUM LEVEL 9.8 MG/DL (8.5-10.1); CARBON DIOXIDE LEVEL 26 MMOL/L (20-31); CHLORIDE LEVEL 105 MMOL/L (98-107); CHOLESTEROL LEVEL 106 MG/DL (<200); CHOLESTEROL RISK RATIO 3.33 (<5); CREATININE FOR GFR 0.97 MG/DL (0.70-1.30); GLOMERULAR FILTRATION RATE > 60.0 (>56); GLUCOSE, FASTING 133 MG/DL (60-100); HDL CHOLESTEROL 31.8 MG/DL (>40); LDL CHOLESTEROL 31.2 MG/DL (<100); NON-HDL-C 74.2 MG/DL; POTASSIUM SERUM 5.2 MMOL/L (3.5-5.1); SODIUM LEVEL 138 MMOL/L (136-145); TOTAL PROTEIN 7.9 G/DL (5.7-8.2); TRIGLYCERIDES LEVEL 215 MG/DL (<150)
[2024-02-12 13:44] LABS: TOTAL 25(OH) VITAMIN D 25.2 NG/ML (20.0-100.0)
[2024-02-12 13:58] LABS: Trichomonas vaginalis (AMP) NOT DETECTED (NEGATIVE)
[2024-02-12 14:15] LABS: HIV 1&2 SCREEN NEGATIVE (NEGATIVE)
[2024-02-12 14:22] LABS: HEPATITIS C VIRUS ABY INDEX 0.02 INDEX (<0.8)
[2024-02-12 14:22] LABS: GC DNA AMPLIFICATION NEGATIVE (NEGATIVE)
== END ==
LOC: M LAB REF 11:42
PROVIDERS: ATTEND Physician Assistant
DX: I10 Essential (primary) hypertension (principal); E66.9 Obesity, unspecified; E55.9 Vitamin D deficiency, unspecified; Z79.899 Other long term (current) drug therapy; Z72.89 Other problems related to lifestyle; Z11.3 Encounter for screening for infections with a predominantly sexual mode of transmission

== ENCOUNTER → 2024-08-19 | Outpatient (CLI) | payer MEDICARE, MEDICAID ==
[2024-08-19 18:20] LABS: BASO # 0.1 10^3/uL (0.0-0.2); BASO % 0.8 % (0.0-1.0); EOS # 0.2 10^3/uL (0.0-0.5); EOS % 3.7 % (0.0-3.0); HEMATOCRIT 51.1 % (42.0-52.0); HEMOGLOBIN 16.6 g/dl (13.5-17.5); LYMPH # 1.3 10^3/uL (1.5-5.0); LYMPH % 19.4 % (24.0-44.0); MEAN CORPUSCULAR HEMOGLOBIN 28.6 pg (27.0-33.0); MEAN CORPUSCULAR HGB CONC 32.5 g/dl (32.0-36.5); MEAN CORPUSCULAR VOLUME 88.1 fl (80.0-96.0); MONO # 0.8 10^3/uL (0.0-0.8); MONO % 12.1 % (2.0-8.0); NEUTROPHILS # 4.1 10^3/uL (1.5-8.5); NEUTROPHILS % 63.1 % (36.0-66.0); PLATELET COUNT, AUTOMATED 221 10^3/uL (150-450); WHITE BLOOD COUNT 6.4 10^3/uL (4.0-10.0)
[2024-08-19 18:24] LABS: BLOOD UREA NITROGEN 29 MG/DL (9-23); CALCIUM LEVEL 9.8 MG/DL (8.5-10.1); CARBON DIOXIDE LEVEL 23 MMOL/L (20-31); CHLORIDE LEVEL 110 MMOL/L (98-107); CREATININE FOR GFR 0.99 MG/DL (0.70-1.30); GLOMERULAR FILTRATION RATE > 60.0 (>56); GLUCOSE, FASTING 123 MG/DL (60-100); POTASSIUM SERUM 4.8 MMOL/L (3.5-5.1); SODIUM LEVEL 139 MMOL/L (136-145)
== END ==
LOC: M RAD 15:54
PROVIDERS: ATTEND Physician Assistant
DX: R06.09 Other forms of dyspnea (principal); I51.7 Cardiomegaly

== ENCOUNTER → 2024-10-12 | Outpatient (CLI) | payer MEDICARE, MEDICAID | LOC: M RAD 15:38 | PROVIDERS: ATTEND Physician Assistant | DX: I82.402 Acute embolism and thrombosis of unspecified deep veins of left lower extremity (principal) ==

== ENCOUNTER → 2024-11-30 | Outpatient (CLI) | payer MEDICARE, MEDICAID | LOC: M RAD 14:20 | PROVIDERS: ATTEND Physician Assistant | DX: L97.909 Non-pressure chronic ulcer of unspecified part of unspecified lower leg with unspecified severity (principal); R09.89 Other specified symptoms and signs involving the circulatory and respiratory systems ==

== ENCOUNTER 2025-01-17 01:07 | Inpatient (IN) | payer MEDICARE, MEDICAID ==
[~2025-01-17 01:07] MED LIST changes: -BISO5TAB14; +BISO5TAB14 PO
[2025-01-17 02:02] LABS: BASO % 0.6 % (0.0-1.0); EOS # 0.2 10^3/uL (0.0-0.5); EOS % 3.5 % (0.0-3.0); LYMPH # 1.1 10^3/uL (1.5-5.0); LYMPH % 22.4 % (24.0-44.0); MEAN CORPUSCULAR HEMOGLOBIN 28.5 pg (27.0-33.0); MEAN CORPUSCULAR HGB CONC 32.1 g/dl (32.0-36.5); MEAN CORPUSCULAR VOLUME 88.6 fl (80.0-96.0); MONO # 0.9 10^3/uL (0.0-0.8); MONO % 16.7 % (2.0-8.0); NEUTROPHILS # 2.9 10^3/uL (1.5-8.5); NEUTROPHILS % 56.6 % (36.0-66.0); PLATELET COUNT, AUTOMATED 190 10^3/uL (150-450); RED BLOOD COUNT 6.43 10^6/uL (4.30-6.10); WHITE BLOOD COUNT 5.1 10^3/uL (4.0-10.0)
[2025-01-17 02:03] LABS: HEMOGLOBIN 18.3 g/dl (13.5-17.5)
[2025-01-17 02:14] LABS: BLOOD UREA NITROGEN 33 MG/DL (9-23); CALCIUM LEVEL 9.4 MG/DL (8.5-10.1); CARBON DIOXIDE LEVEL 27 MMOL/L (20-31); CHLORIDE LEVEL 104 MMOL/L (98-107); CREATININE FOR GFR 1.17 MG/DL (0.70-1.30); GLOMERULAR FILTRATION RATE > 60.0 (>56); GLUCOSE, FASTING 126 MG/DL (60-100); MAGNESIUM LEVEL 2.1 MG/DL (1.8-2.4); PHOSPHORUS LEVEL 4.2 MG/DL (2.5-4.9); POTASSIUM SERUM 5.1 MMOL/L (3.5-5.1); SODIUM LEVEL 139 MMOL/L (136-145)
[2025-01-17 02:15] LABS: CPK CREATINE PHOSPHOKINASE 418 U/L (46-171); MB/CK RELATIVE INDEX 1.43 (< OR =4)
[2025-01-17] MEDS: NS (Normal Saline) 0.9% 1,000 ML IV ONE (02:45)
[2025-01-17 03:33] LABS: ETHYL ALCOHOL (ETHANOL) < 0.003 % (0.000-0.010)
[2025-01-17 03:37] LABS: CK-MB VALUE MASS 5.5 NG/ML (<3.6)
[2025-01-17 03:40] LABS: MB/CK RELATIVE INDEX 1.48 (< OR =4)
[2025-01-17 04:19] LABS: BARBITURATES URINE NEGATIVE (NEGATIVE); BENZODIAZEPINES URINE NEGATIVE (NEGATIVE); CANNABINOIDS URINE NEGATIVE (NEGATIVE); COCAINE METABOLITE URINE NEGATIVE (NEGATIVE); METHADONE URINE NEGATIVE (NEGATIVE); PHENCYCLIDINE URINE NEGATIVE (NEGATIVE)
[2025-01-17 04:25] LABS: AMPHETAMINES LEVEL URINE POSITIVE (NEGATIVE); OPIATES URINE POSITIVE (NEGATIVE)
[2025-01-17] MEDS: AMIODARONE HCL 150 MG in IV 1 EA IV ONE (07:19)
[2025-01-17] MEDS: AMIODARONE HCL 360 MG in IV 1 EA IV SCH ×2 (07:52→13:51)
[2025-01-17] MEDS ORDERED: POTA-150 PO (07:59)
[2025-01-17] MEDS ORDERED: FURO40TA2 PO (07:59)
[2025-01-17] MEDS ORDERED: FARX1TAB3 PO (07:59)
[2025-01-17] MEDS ORDERED: METO50TA7 PO (07:59)
[2025-01-17] MEDS ORDERED: HOME MED LIST COMPLETE! XX SCH (08:05)
[2025-01-17] MEDS ORDERED: GLUCOSE 4 GM CHEW PO PRN (12:45)
[2025-01-17] MEDS ORDERED: DEXTROSE 50% 50ML SYRINGE IV PRN (12:45)
[2025-01-17] MEDS ORDERED: GLUCAGON INJ 1MG VIAL SC PRN (12:45)
[2025-01-17 12:59] LABS: URIC ACID 4.6 MG/DL (3.7-9.2)
[2025-01-17 13:02] LABS: PROCALCITONIN 0.04 ng/ml
[2025-01-17 13:07] LABS: INR 1.14; PROTHROMBIN TIME 14.9 SECONDS (12.5-14.5)
[2025-01-17 14:14] VITALS: BP 166/92; TEMP 97.8; O2SAT 92
[2025-01-17] MEDS: APIXABAN 5 MG TAB (ELIQUIS) PO SCH (14:46)
[2025-01-17] MEDS: ATORVASTATIN 20 MG TAB PO SCH (14:46)
[2025-01-17] MEDS: ENTRESTO 24-26MG TABLET (SACUBITRIL/VALSARTAN) PO SCH (14:46)
[2025-01-17] MEDS: DAPAGLIFLOZIN PROPANEDIOL 10MG TABLET (FARXIGA) PO SCH (14:46)
[2025-01-17] MEDS: METOPROLOL TART 50 MG TAB PO SCH (14:47)
[2025-01-17 16:07] VITALS: BP 121/65; TEMP 98.2; O2SAT 90
[2025-01-17] MEDS: INSULIN LISPRO (NovoLOG) PER UNIT SC SCH ×2 (18:36→20:27)
[2025-01-17] MEDS: PERCOCET 5MG/325MG TAB PO PRN (18:39)
[2025-01-17 19:34] VITALS: BP 124/63; TEMP 98.2; O2SAT 96
[2025-01-18] VITALS (11 sets, daily range): BP systolic 101–149; BP diastolic 51–72; TEMP 98.1–98.6; O2SAT 83–96
[2025-01-18 07:06] LABS: HEMATOCRIT 52.2 % (42.0-52.0); HEMOGLOBIN 16.5 g/dl (13.5-17.5); MEAN CORPUSCULAR HGB CONC 31.6 g/dl (32.0-36.5); MEAN CORPUSCULAR VOLUME 88.5 fl (80.0-96.0); PLATELET COUNT, AUTOMATED 167 10^3/uL (150-450); WHITE BLOOD COUNT 6.4 10^3/uL (4.0-10.0)
[2025-01-18 07:47] LABS: BLOOD UREA NITROGEN 19 MG/DL (9-23); CARBON DIOXIDE LEVEL 23 MMOL/L (20-31); CHLORIDE LEVEL 109 MMOL/L (98-107); GLOMERULAR FILTRATION RATE > 60.0 (>56); GLUCOSE, FASTING 105 MG/DL (60-100); POTASSIUM SERUM 4.7 MMOL/L (3.5-5.1); SODIUM LEVEL 140 MMOL/L (136-145)
[2025-01-18] MEDS: FUROSEMIDE 40MG/4ML VIAL IV ONE (08:58)
[2025-01-18] MEDS: ASPIRIN 81MG ENTERIC TABLET PO SCH (08:58)
[2025-01-18] MEDS: AMIODARONE 200 MG TAB (PACERONE) PO SCH (10:55)
[2025-01-18] MEDS ORDERED: AMIO200T49 PO (11:25)
[2025-01-18] MEDS ORDERED: FURO40TA2 PO (11:25)
[2025-01-18] MEDS ORDERED: MAGN400C PO (11:26)
[2025-01-18] MEDS ORDERED: HYDR-3713 PO (15:29)
== END 2025-01-18 16:24 | disposition home or self-care (01) | DRG 309 ==
LOC: M ED 01:07 → M ED INP 10:07 → M PCU 14:03
PROVIDERS: ADMIT Internal Medicine; ATTEND Internal Medicine
DX: I47.20 Ventricular tachycardia, unspecified (principal); I50.22 Chronic systolic (congestive) heart failure; F12.90 Cannabis use, unspecified, uncomplicated; I73.9 Peripheral vascular disease, unspecified; R73.03 Prediabetes; I87.2 Venous insufficiency (chronic) (peripheral); Z95.810 Presence of automatic (implantable) cardiac defibrillator; I48.91 Unspecified atrial fibrillation; I25.10 Atherosclerotic heart disease of native coronary artery without angina pectoris; I25.2 Old myocardial infarction; Z86.718 Personal history of other venous thrombosis and embolism; Z95.2 Presence of prosthetic heart valve; Z79.899 Other long term (current) drug therapy; Z79.82 Long term (current) use of aspirin; F15.90 Other stimulant use, unspecified, uncomplicated

== ENCOUNTER → 2025-02-25 | Outpatient (CLI) | payer MEDICARE, MEDICAID ==
[~2025-02-25] MED LIST changes: +AMIO200T49 PO; +FARX1TAB3 PO; +FURO40TA2 PO; +HYDR-3713 PO; +ISOVUE-370 76% 100ML VIAL As Ordered ONE; +MAGN400C PO; +METO50TA7 PO; +POTA-150 PO
== END ==
LOC: M RAD 09:20
PROVIDERS: ATTEND Surgery Vascular Surgery
DX: I70.244 Atherosclerosis of native arteries of left leg with ulceration of heel and midfoot (principal)
CPT/HCPCS: 75635; Q9967